=== PATIENT | male | born 2000 | race Caucasian/White ===

== ENCOUNTER 2024-04-30 07:50 | Outpatient (CLI) | payer BC, SELFPAY | END 2024-04-30 07:51 | disposition home or self-care (01) | LOC: NFLDREF 05-05 16:23 | PROVIDERS: PCP Family Medicine; Referring Provider Family Medicine; Visit Provider Obstetrics & Gynecology | DX: Z31.41 Encounter for fertility testing (principal) | CPT/HCPCS: 89322 ==